=== PATIENT | female | born 1970 | race Caucasian/White ===

== ENCOUNTER 2017-09-09 10:25 | Observation (INO) | payer OTHER ==
[2017-09-09 10:52] LABS: NEG OBC UR NEG; POS OBC UR POS; U PREG PATIENT NEGATIVE (NEG)
[2017-09-09] MEDS: IV RINGERS,LACTATED 1000ML 1,000 ML IV ×3 (11:02→20:45)
[2017-09-09] MEDS ORDERED: LIDOCAINE 2%/EPI 1:100,000 20 ML VIAL. (11:04)
[2017-09-09] MEDS ORDERED: SURGICEL FIBRILLAR 1X2 EACH. (11:04)
[2017-09-09] MEDS ORDERED: EPINEPHrine VIAL 30 MG/30 ML VIAL (11:08)
[2017-09-09] MEDS ORDERED: SUCCINYLCHOLINE 200 MG/10 ML VIAL. (11:57)
[2017-09-09] MEDS ORDERED: fentaNYL PF VIAL 250 MCG/5 ML VIAL (11:57)
[2017-09-09] MEDS ORDERED: MIDAZOLAM HCL/PF 2 MG/2 ML VIAL. (11:57)
[2017-09-09] MEDS ORDERED: PROPOFOL 20 ML IV ×2 (11:58→14:48)
[2017-09-09] MEDS ORDERED: ONDANSETRON PF 4 MG/2 ML VIAL. (11:58)
[2017-09-09] MEDS ORDERED: LIDOCAINE 1% PF 5 ML VIAL. (11:58)
[2017-09-09] MEDS ORDERED: DEXAMETHASONE SOD PHOS 20 MG/5 ML VIAL. (11:58)
[2017-09-09] MEDS: LIDOCAINE 1%/EPI 1:100,000 20 ML VIAL. INJ (13:03)
[2017-09-09] MEDS: BACITRACIN TOPICAL OINT 14GM TUBE. TP (13:58)
[2017-09-09] MEDS ORDERED: PHENYLEPHRINE in 0.9% NACL PF 1 MG/10 ML SYRINGE. IV (14:18)
[2017-09-09] MEDS ORDERED: SEVOFLURANE > 120 MINUTES. IH (14:18)
[2017-09-09] MEDS ORDERED: LIDOCAINE 1% PF 2 ML VIAL. ID (15:30)
[2017-09-09] MEDS ORDERED: HYDROmorphone 2 MG/ML VIAL IV (15:30)
[2017-09-09] MEDS ORDERED: fentaNYL PF VIAL 100 MCG/2 ML VIAL IV (15:30)
[2017-09-09] MEDS ORDERED: ONDANSETRON PF 4 MG/2 ML VIAL. IV ×2 (15:30→16:00)
[2017-09-09] MEDS: PROCHLORPERAZINE 10 MG/2 ML VIAL. IV (15:41)
[2017-09-09] MEDS: fentaNYL PF VIAL 100 MCG/2 ML VIAL IV ×2 (15:41→15:54)
[2017-09-09] MEDS: IV NORMAL SALINE 1000ML BAG 1,000 ML IV (15:50)
[2017-09-09] MEDS ORDERED: METOCLOPRAMIDE HCL 10 MG/2 ML VIAL. IV (16:00)
[2017-09-09] MEDS ORDERED: PROCHLORPERAZINE 25 MG SUPP.RECT. PR (16:00)
[2017-09-09] MEDS ORDERED: oxyCODONE/APAP 5/325 1 TAB TABLET PO (16:00)
[2017-09-09] MEDS ORDERED: MORPHINE SULFATE 2 MG/ML DISP.SYRIN. IV (16:00)
[2017-09-09] MEDS ORDERED: diphenhydrAMINE 50 MG/ML VIAL IV (16:00)
[2017-09-09] MEDS ORDERED: 0.9 % SODIUM CHLORIDE 10 ML DISP.SYRIN. IV (16:00)
[2017-09-09 16:08] LABS: IONIZED CALCIUM 1.17 mmol/L (1.13-1.32)
[2017-09-09] MEDS: MORPHINE SULFATE 2 MG/ML DISP.SYRIN. IV ×2 (16:13→16:29)
[2017-09-09] MEDS: oxyCODONE/APAP 5/325 1 TAB TABLET PO (18:30)
[2017-09-09] MEDS: DOCUSATE SODIUM 100 MG CAPSULE. PO (21:00)
[2017-09-10] MEDS: IV NORMAL SALINE 1000ML BAG 1,000 ML IV (01:50)
[2017-09-10 06:23] LABS: HEMATOCRIT 36.4 % (36.0-47.0); MEAN CORPUSCULAR HEMOGLOBIN 28 pg (25-35); MEAN CORPUSCULAR HGB CONC 33 g/dL (31-37); MEAN CORPUSCULAR VOLUME 86 fL (79-100); PLATELET COUNT 272 x10^3/uL (140-400); RED BLOOD COUNT 4.22 x10^6/uL (3.50-5.40); RED CELL DISTRIBUTION WIDTH 13.8 % (11.5-14.5); WHITE BLOOD COUNT 10.1 x10^3/uL (4.0-11.0)
[2017-09-10 06:42] LABS: ANION GAP 9 (6-14); BLOOD UREA NITROGEN 7 mg/dL (7-20); CALCIUM 7.8 mg/dL (8.5-10.1); CARBON DIOXIDE 27 mmol/L (21-32); CHLORIDE 106 mmol/L (98-107); CREATININE 0.7 mg/dL (0.6-1.0); GFR 90.5; GLUCOSE 94 mg/dL (70-99); MAGNESIUM 1.8 mg/dL (1.8-2.4); POTASSIUM 4.1 mmol/L (3.5-5.1); SODIUM 142 mmol/L (136-145)
[2017-09-10] MEDS: IV RINGERS,LACTATED 1000ML 1,000 ML IV (06:45)
[2017-09-10] MEDS: DOCUSATE SODIUM 100 MG CAPSULE. PO (08:30)
[2017-09-10] MEDS: CALCITRIOL 0.25 MCG CAPSULE. PO (09:41)
[2017-09-10] MEDS: CALCIUM CARBONATE 500 MG TABLET PO ×3 (09:41→13:10)
[2017-09-10 12:21] LABS: CALCIUM PTH 8.8 mg/dL (8.7-10.2); CREATININE PTH 0.75 mg/dL (0.57-1.00); PHOSPHORUS PTH 2.7 mg/dL (2.5-4.5); PTH INTACT 19 pg/mL (15-65); eGFR AFRICAN-AMER 111 (>59); eGFR NON AFRICAN-AMER 97 (>59)
== END 2017-09-10 15:15 | disposition home or self-care (01) ==
LOC: SURG 10:25 → 4 NORTH 16:10
DX: E04.2 Nontoxic multinodular goiter (principal); E05.90 Thyrotoxicosis, unspecified without thyrotoxic crisis or storm; F32.9 Major depressive disorder, single episode, unspecified
CPT/HCPCS: 36415; 80048; 81025; 82310; 83735; 83970; 85027; 88305; 88307; 88311; 88331; C1769; G0378; G0379; J0171; J0330; J0690; J0780; J1100; J2250; J2270; J2370; J2405; J2704; J3010; J3490; J7030; J7120